=== PATIENT | female | born 1955 | race Caucasian/White ===

== ENCOUNTER 2018-12-01 07:17 | Observation (INO) ==
[2018-12-01] MEDS ORDERED: MAG HYDROX/ALUMINUM HYD/SIMETH 30 ML UDC PO ONE (07:55)
[2018-12-01] MEDS ORDERED: SUCRALFATE 1 G/10 ML UDC PO ONE (07:55)
[2018-12-01] MEDS ORDERED: LIDOCAINE HCL 20 ML UDC PO ONE (07:55)
[2018-12-01] MEDS ORDERED: diphenhydrAMINE HCL 50 MG/ML VIAL IV ONE (08:21)
[2018-12-01] MEDS ORDERED: NORMAL SALINE 1,000 ML IV ONE (08:21)
[2018-12-01] MEDS ORDERED: METOCLOPRAMIDE HCL 5 MG/ML VIAL IV ONE (08:21)
--- NOTE | 2018-12-01 08:25 | ERNOTE ---
Abdominal HPI - General Chief Complaint: Abdominal Pain Time Seen by Provider: 12/01/18 08:15 Source: patient Exam Limitations: no limitations - Immun/Allergies/Home Medications Immunizatons: IMMUNIZATION HX Immunizations Up to Date Yes History of Influenza Vaccine No Hx Pneumococcal Vaccination Yes Allergies/Adverse Reactions: Allergies codeine Allergy (Verified 10/02/18 21:05) Home Medications: HOME MEDICATIONS Albuterol Sulfate [Proair Hfa] 1 puff IH DAILY PRN 09/30/15 [Last Taken Unknown] Aspirin [Aspirin Chewable] 81 mg PO DAILY 09/30/15 [Last Taken Unknown] Budesonide/Formoterol Fumarate [Symbicort 160-4.5 Mcg Inhaler] 2 puff IH TID 09/30/15 [Last Taken Unknown] Buspirone HCl [Buspar] 20 mg PO BID 09/30/15 [Last Taken Unknown] QUEtiapine FUMARATE [Seroquel] 100 mg PO DAILY 09/30/15 [Last Taken Unknown] Dexlansoprazole [Dexilant] 60 mg PO DAILY 10/02/18 [Last Taken Unknown] Lurasidone HCl [Latuda] 20 mg PO DAILY 10/02/18 [Last Taken Unknown] Oxybutynin Chloride [Ditropan] 5 mg PO BID 10/02/18 [Last Taken Unknown] Omeprazole 20 mg PO DAILY 12/01/18 [Last Taken Unknown] - History of Present Illness Narrative: Patient presents with left flank and left upper quadrant pain that appears to radiate down into the lower abdomen. She states she has been throwing up 4 hours now and the pain appears to be unrelenting. She rates it as being believes moderate to severe and somewhat colicky in nature. Timing: constant, intermittent Quality: moderate, severe Activities at Onset: none Associated Symptoms: Present: nausea, vomiting Prior Abdominal Problems: Present: similar symptoms Prior Treatment: Present: recently seen Review of Systems - Review of Systems Constitutional: Present: See HPI EYE: Present: no symptoms reported ENT: Present: no symptoms reported Respiratory: Present: no symptoms reported Cardiology: Present: no symptoms reported Gastrointestinal/Abdominal: Present: See HPI Genitourinary: Present: no symptoms reported Musculoskeletal: Present: no symptoms reported Skin: Present: no symptoms reported Neurological: Present: no symptoms reported Endocrine: Present: no symptoms reported Hematologic/Lymphatic: Present: no symptoms reported Psych: Present: no symptoms reported Medical History (Last Reviewed 10/02/18 @ 22:55 by Zuly Alvarez RN) History of asthma Hx of bronchitis Hx of hyperlipidemia Hx of primary hypertension Surgical History: Surgical History (Last Updated 12/01/18 @ 07:27 by Jovany Hughes RN) History of esophagogastroduodenoscopy (EGD) 10/2018 History of bilateral knee arthroplasty History of carpal tunnel release of both wrists History of partial hysterectomy Hx of cataract extraction Hx of rotator cuff surgery Family History: Family History (Last Reviewed 10/02/18 @ 22:55 by Zuly Alvarez RN) Other No pertinent family history Social History: Preferred Language Kiswahili Do you have any anabaptism or No cultural preference? Smoking Status Current every day smoker Have you smoked in the past 12 Yes months Do you dip or chew tobacco No Abuse History No History of abuse Psych History Hx of Anxiety,Hx of Depression Alcohol Use sober Drug Use none No Social History Section defined Physical Exam - Physical Exam General Appearance: Present: wd/wn, alert, moderate distress, severe distress Head Exam: Present: normal inspection, no evidence of injury Eye Exam: Normal inspection: bilateral, PERRL: bilateral Ears, Nose, Throat: Present: normal ENT inspection, H, normal pharynx Neck: Present: normal inspection, nontender Respiratory: Present: no respiratory distress, normal breath sounds, no accessory muscle use, chest nontender, lungs clear Cardiovascular/Chest: Present: regular rate, rhythm, no murmur, normal peripheral pulses Gastrointestinal/Abdominal: Present: normal bowel sounds, nondistended, soft, no organomegaly, tenderness Rectal Exam: Present: deferred Back Exam: Present: normal range of motion, CVA tenderness (L) Extremity Exam: Present: normal inspection, non-tender, no edema, normal range of motion Neurological Exam: Present: alert, oriented, normal mood/affect Skin Exam: Present: normal color, warm/dry Lymphatic Exam: Present: no adenopathy Progress - Results and Orders Patient's Lab Results:: I have reviewed the patient's lab results. - Vital Signs Patient's Vital Signs:: I have reviewed the patient's vital signs. Vital Signs: Vital Signs 12/01/18 07:17 Temperature 36.0 C Pulse Rate 89 Respiratory Rate 18 Blood Pressure 162/85 H O2 Sat by Pulse Oximetry 95 - Progress/Reassessment Chief Complaint: Abdominal Pain Plan - Plan Plan: I suspect the patient has an infected kidney stone on the left. We did do 2 blood cultures she was given IV fluid and 1 g of Rocephin. I discussed the case with both the hospitalist and the on-call urologist and patient will be admitted and a stent will be placed sometime later this afternoon. Departure Clinical Impression: Pyelonephritis, Ureteral stone with hydronephrosis - Departure Disposition: Still a patient Condition: Fair Referrals: Farooq Quijano MD [Primary Care Provider] -
[2018-12-01 08:46] LABS: Hematocrit 47.3 % (37.0-47.0); Hemoglobin 16.3 gm/dL (12.5-16.0); Mean Cell Volume 95.9 fl (78-100); Mean Corpuscular Hemoglobin 33.1 pg (27-31); Mean Corpuscular Hgb Conc 34.5 g/dl (32-36); Mean Platelet Volume 9.9 fl (8-12.5); Neutrophil # 13.1 K/mm3 (1.3-6.0); Neutrophil % 80.1 % (42-75.0); Platelet Count 294 K/mm3 (150-450); Red Blood Count 4.93 M/mm3 (4.2-5.4); Red Cell Distribution Width 12.4 % (11.5-14.0); White Blood Count 16.3 K/mm3 (4.0-10.5)
[2018-12-01 08:47] LABS: Albumin * 3.6 gm/dl (3.4-5.0); BUN/Creatinine Ratio 14.6 (9.0-21.6); Bilirubin, Total 0.6 mg/dL (0.0-1.1); Ca. Corrected For Albumin 9.7 mg/dL (8.4-10.2); Calcium * 9.7 mg/dL (7.9-10.9); Carbon Dioxide 29.1 mmol/L (24-32.6); Magnesium 1.8 mg/dL (1.2-2.8); Potassium 4.1 mmol/L (3.4-4.6); Total Protein 7.7 gm/dL (6.2-8.2)
[2018-12-01 09:26] LABS: Urine Bilirubin Negative (NEGATIVE); Urine Blood 50 /ul (NEGATIVE); Urine Ketone Negative (NEGATIVE); Urine Protein 15 mg/dL (NEGATIVE); Urine Specific Gravity 1.025 SP.GR. (1.005-1.010); Urine Urobilinogen Normal (NORMAL)
[2018-12-01 09:32] LABS: Urine Color Dark Yellow; Urine Nitrite Positive (NEGATIVE)
[2018-12-01 09:33] LABS: Urine Appearance Slightly Cloudy (CLEAR); Urine Bacteria 2+
[2018-12-01] MEDS ORDERED: cefTRIAXone SODIUM 1,000 MG/100 ML BAG IV ONE (11:52)
[2018-12-01] MEDS ORDERED: HYDROmorphone HCL 1 MG/ML DISP.SYRIN IV ONE (13:04)
[2018-12-01] MEDS ORDERED: ONDANSETRON HCL/PF 2 MG/ML VIAL IV PRN (13:20)
[2018-12-01] MEDS ORDERED: HYDROmorphone HCL 1 MG/ML DISP.SYRIN IV PRN (13:28)
[2018-12-01] MEDS: NORMAL SALINE 1,000 ML IV ONE ×2 (13:32→13:47)
[2018-12-01] MEDS ORDERED: ALBUTEROL SULFATE 2.5 MG/0.5 ML VIAL.NEB IH PRN (13:34)
--- NOTE | 2018-12-01 13:49 | HP ---
Chief Complaint - Chief Complaint Date of Service: 12/01/18 Time of Service: 13:37 Chief Complaint: I have left flank pain, nausea vomiting since yesterday. History of Present Illness: 63-year-old female with past medical history of morbid obesity, hypertension, acid reflux disease, depression, anxiety disorder, bronchial asthma, was brought to ER due to left lower quadrant pain accompanied by nausea and multiple episodes of nonbloody vomiting that started last night in her home. Patient reports her symptoms started with lower back and left flank discomfort that started yesterday afternoon and worsen in the evening when she started having edie left lower quadrant pain with nausea and vomiting. She reports not being able to get a comfortable position ever since her pain started. She denies renal issues or chronic kidney disease or any kidney stones in her past. Patient has never seen a maitre d and only takes medication for bladder incontinence and overactive bladder. Medical History (Last Reviewed 10/02/18 @ 22:55 by Zuly Alvarez RN) History of asthma Hx of bronchitis Hx of hyperlipidemia Hx of primary hypertension Surgical History: Surgical History (Last Updated 12/01/18 @ 07:27 by Jovany Hughes RN) History of esophagogastroduodenoscopy (EGD) 10/2018 History of bilateral knee arthroplasty History of carpal tunnel release of both wrists History of partial hysterectomy Hx of cataract extraction Hx of rotator cuff surgery Family History: Family History (Last Reviewed 10/02/18 @ 22:55 by Zuly Alvarez RN) Other No pertinent family history Social History: Preferred Language North [place] Do you have any pentecostal or No cultural preference? Smoking Status Current every day smoker Have you smoked in the past 12 Yes months Do you dip or chew tobacco No Abuse History No History of abuse Psych History Hx of Anxiety,Hx of Depression Alcohol Use sober Drug Use none No Social History Section defined Peds Patient Hx - Developmental: No Pertinent Hx Peds Patient Hx - Medical: No Pertinent Hx Peds Patient Hx - Cardiac/Respiratory: No Pertinent Hx Peds Patient Hx - Surgical: No Surgical History Patient History - Cancer: No Hx of Cancer Review Of Systems (GEN) - Review of Systems Generalized/Overall Review: Present: Chills. Absent: Fever EENTM: Present: No Symptoms Reported Respiratory: Present: No Symptoms Reported Cardiac: Present: No Symptoms Reported Abdominal: Present: Nausea, Vomiting, Abdominal Pain Genitourinary: Present: Incontinent Musculoskeletal: Present: No Symptoms Reported Neurological: Present: No Symptoms Reported Skin: Present: No Symptoms Reported Endocrine: Present: No Symptoms Reported Misc: All systems neg except as marked Immunizations: IMMUNIZATION HX Immunizations Up to Date Yes History of Influenza Vaccine No Hx Pneumococcal Vaccination Yes Allergies/Adverse Reactions: Allergies Allergy/AdvReac Type Severity Reaction Status Date / Time codeine Allergy Verified 10/02/18 21:05 Home Medications: HOME MEDICATIONS Albuterol Sulfate [Proair Hfa] 1 puff IH DAILY PRN 09/30/15 [Last Taken Unknown] Aspirin [Aspirin Chewable] 81 mg PO DAILY 09/30/15 [Last Taken Unknown] Budesonide/Formoterol Fumarate [Symbicort 160-4.5 Mcg Inhaler] 2 puff IH TID 09/30/15 [Last Taken Unknown] Buspirone HCl [Buspar] 20 mg PO BID 09/30/15 [Last Taken Unknown] QUEtiapine FUMARATE [Seroquel] 100 mg PO DAILY 09/30/15 [Last Taken Unknown] Dexlansoprazole [Dexilant] 60 mg PO DAILY 10/02/18 [Last Taken Unknown] Lurasidone HCl [Latuda] 20 mg PO DAILY 10/02/18 [Last Taken Unknown] Oxybutynin Chloride [Ditropan] 5 mg PO BID 10/02/18 [Last Taken Unknown] Omeprazole 20 mg PO DAILY 12/01/18 [Last Taken Unknown] Exam - Exam Vital Signs: Vital Signs - Last Taken Temp 36.0 C 12/01/18 07:17 Pulse 89 12/01/18 07:17 Resp 18 12/01/18 07:17 BP 162/85 H 12/01/18 07:17 Pulse Ox 95 12/01/18 07:17 Constitutional: Present: Alert, Oriented x3, Cooperative, Well developed, Well nourished, Mild distress, Elderly, Morbidly obese ENT Exam: Present: normal ENT inspection, hearing grossly normal, pharynx normal, TMs normal Eye Exam: bilateral eye: normal inspection, PERRL, EOMI Neck: Present: non-tender, full range of motion, supple, normal inspection, trachea midline, limited range of motion Back Exam: Present: CVA tenderness (L) Breasts: Present: Exam deferred Respiratory: Present: chest non-tender Cardiovascular/Chest: Present: normal peripheral pulses, regular rate, rhythm, no chest tenderness, no edema, no gallop, no JVD, no murmur Peripheral Pulses: carotid (R): 3+, carotid (L): 3+, femoral (R): 3+, femoral (L): 3+, dorsalis-pedis (R): 3+, dorsalis-pedis (L): 3+, radial (R): 3+, radial (L): 3+ Abdomen: Present: Normal bowel sounds, soft, nontender, nondistended, no rebound tenderness, no hepatospenomegaly, no masses, obese /Rectal: Present: Exam deferred Extremity: Present: normal range of motion, non-tender, normal inspection, no pedal edema, no calf tenderness, normal capillary refill, pelvis stable Skin Exam: Present: normal color, warm/dry, no cyanosis Lymphatic: Present: no adenopathy Neurologic: Present: 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, normal cerebellar test, no motor/sensory deficits, alert, normal mood/affect, oriented x 3 Appearance: Present: appropriate appearance, appropriate insight Eye contact: Present: cooperative, good eye contact, normal speech Thoughts: Present: normal thought pattern, no apparent hallucination Diagnostic Studies: Abnormal Lab Results 12/01/18 12/01/18 12/01/18 Range/Units 08:25 08:25 09:20 WBC 16.3 H (4.0-10.5) K/mm3 Hgb 16.3 H (12.5-16.0) gm/dL Hct 47.3 H (37.0-47.0) % MCH 33.1 H (27-31) pg Immature Gran # (Auto) 0.06 H (0.000-0.0310) K/mm3 Neutrophils % 80.1 H (42-75.0) % Lymphocytes % 15.7 L (20-51) % Neutrophils # 13.1 H (1.3-6.0) K/mm3 Anion Gap 14.0 H (6.8-13.8) mmol/L Random Glucose 123 H (70-110) mg/dL ALT 14 L (19-67) U/L Urine Protein 15 H (NEGATIVE) mg/dL Urine Blood 50 H (NEGATIVE) /ul Urine Nitrate Positive H (NEGATIVE) Ur Leukocyte Esterase 100 H (NEGATIVE) /ul Urine RBC 5-10 H (0-5) /hpf Urine WBC 10-25 H (0-5) /hpf Urine Bacteria 2+ H (NONE) Laboratory Results WBC 16.3 K/mm3 (4.0-10.5) H 12/01/18 08:25 RBC 4.93 M/mm3 (4.2-5.4) 12/01/18 08:25 Hgb 16.3 gm/dL (12.5-16.0) H 12/01/18 08:25 Hct 47.3 % (37.0-47.0) H 12/01/18 08:25 MCV 95.9 fl (78-100) 12/01/18 08:25 MCH 33.1 pg (27-31) H 12/01/18 08:25 MCHC 34.5 g/dl (32-36) 12/01/18 08:25 RDW 12.4 % (11.5-14.0) 12/01/18 08:25 Plt Count 294 K/mm3 (150-450) 12/01/18 08:25 MPV 9.9 fl (8-12.5) 12/01/18 08:25 Immature Gran % (Auto) 0.40 % (0.001-0.429) 12/01/18 08:25 Immature Gran # (Auto) 0.06 K/mm3 (0.000-0.0310) H 12/01/18 08:25 Neutrophils % 80.1 % (42-75.0) H 12/01/18 08:25 Lymphocytes % 15.7 % (20-51) L 12/01/18 08:25 Monocytes % 3.3 % (0.0-9) 12/01/18 08:25 Eosinophils % 0.1 % (0.0-3.0) 12/01/18 08:25 Basophils % 0.4 % (0.0-1.0) 12/01/18 08:25 Nucleated RBC % 0.0 k/mm3 (0-1) 12/01/18 08:25 Neutrophils # 13.1 K/mm3 (1.3-6.0) H 12/01/18 08:25 Lymphocytes # 2.56 k/mm3 (1.5-3.5) 12/01/18 08:25 Monocytes # 0.5 k/mm3 (0.0-1.0) 12/01/18 08:25 Eosinophils # 0.0 k/mm3 (0.0-0.7) 12/01/18 08:25 Absolute Basophils 0.1 k/mm3 (0.0-0.1) 12/01/18 08:25 Sodium 141 mmol/L (132-142) 12/01/18 08:25 Plasma Sodium 141 mmol/L (130-142) 12/01/18 08:25 Potassium 4.1 mmol/L (3.4-4.6) D 12/01/18 08:25 Chloride 102 mmol/L (97-106) 12/01/18 08:25 Carbon Dioxide 29.1 mmol/L (24-32.6) 12/01/18 08:25 Anion Gap 14.0 mmol/L (6.8-13.8) H 12/01/18 08:25 BUN 13 mg/dL (3-23) 12/01/18 08:25 Creatinine 0.89 mg/dL (0.4-1.4) 12/01/18 08:25 Est GFR (Non-Af Amer) 68 mL/min (60-130) 12/01/18 08:25 BUN/Creatinine Ratio 14.6 (9.0-21.6) 12/01/18 08:25 Random Glucose 123 mg/dL (70-110) H 12/01/18 08:25 Calcium 9.7 mg/dL (7.9-10.9) 12/01/18 08:25 Calcium Adj for Albumin 9.7 mg/dL (8.4-10.2) 12/01/18 08:25 Magnesium 1.8 mg/dL (1.2-2.8) 12/01/18 08:25 Total Bilirubin 0.6 mg/dL (0.0-1.1) 12/01/18 08:25 AST 15 U/L (0-48) 12/01/18 08:25 ALT 14 U/L (19-67) L 12/01/18 08:25 Alkaline Phosphatase 119 U/L (50-170) 12/01/18 08:25 Total Protein 7.7 gm/dL (6.2-8.2) 12/01/18 08:25 Albumin 3.6 gm/dl (3.4-5.0) 12/01/18 08:25 Lipase 111 U/L (73-393) 12/01/18 08:25 Urine Color Dark yellow 12/01/18 09:20 Urine Appearance Slightly cloudy (CLEAR) 12/01/18 09:20 Urine pH 6.0 pH (5.0-7.0) 12/01/18 09:20 Ur Specific [place] 1.025 SP.GR. (1.005-1.010) 12/01/18 09:20 Urine Protein 15 mg/dL (NEGATIVE) H 12/01/18 09:20 Urine Glucose (UA) Negative mg/dL (NEGATIVE) 12/01/18 09:20 Urine Ketones Negative mg/dL (NEGATIVE) 12/01/18 09:20 Urine Blood 50 /ul (NEGATIVE) H 12/01/18 09:20 Urine Nitrate Positive (NEGATIVE) H 12/01/18 09:20 Urine Bilirubin Negative mg/dl (NEGATIVE) 12/01/18 09:20 Prot Sulfosalicylic Acd Negative mg/dL (0) 12/01/18 09:20 Urine Urobilinogen Normal EU/dl (NORMAL) 12/01/18 09:20 Ur Leukocyte Esterase 100 /ul (NEGATIVE) H 12/01/18 09:20 Urine RBC 5-10 /hpf (0-5) H 12/01/18 09:20 Urine WBC 10-25 /hpf (0-5) H 12/01/18 09:20 Ur Epithelial Cells 0-5 /hpf (0-5) 12/01/18 09:20 Urine Bacteria 2+ (NONE) H 12/01/18 09:20 Urine Culture Comments Culture to follow 12/01/18 09:20 Assessment/Plan - Narrative Narrative: Patient was evaluated and medical chart was reviewed, decision to admit to outpatient observation for acute pyelonephritis secondary to infected nephrolithiasis was taken. Patient was also found to be moderately dehydrated likely secondary to her multiple episodes of nonbloody vomiting. Therefore we will treat patient with IV hydration, analgesics for pain control, and IV antibiotics. Blood culture and urine cultures were taken and sent to lab. We will also consult a urologist for possible stent placement for left-sided ureteral obstruction. We will follow-up with further recommendations from the specialists. - Assessment/Plan (1) Pyelonephritis Problem: Acute (2) Ureteral stone with hydronephrosis Problem: Acute (3) Moderate dehydration Problem: Acute (4) Nausea & vomiting Problem: Acute (5) Nausea & vomiting Problem: Acute
[2018-12-01] MEDS: FAMOTIDINE 20 MG in DEXTROSE 5 % IN WATER 100 ML IV SCH ×2 (14:37)
--- NOTE | 2018-12-01 14:48 | ANES ---
Anesthesia Pre Procedure Eval Vitals/Labs: Last Vital Signs Temp 37.1 C 12/01/18 13:54 Pulse 78 12/01/18 13:54 Resp 20 12/01/18 13:54 BP 132/70 12/01/18 13:54 Pulse Ox 94 12/01/18 13:54 HOME MEDICATIONS Albuterol Sulfate [Proair Hfa] 1 puff IH DAILY PRN 09/30/15 [Last Taken Unknown] Aspirin [Aspirin Chewable] 81 mg PO DAILY 09/30/15 [Last Taken Unknown] Budesonide/Formoterol Fumarate [Symbicort 160-4.5 Mcg Inhaler] 2 puff IH TID 09/30/15 [Last Taken Unknown] Lurasidone HCl [Latuda] 20 mg PO DAILY 10/02/18 [Last Taken Unknown] Oxybutynin Chloride [Ditropan] 5 mg PO BID 10/02/18 [Last Taken Unknown] Gabapentin [Neurontin] 600 mg PO TID 12/01/18 [Last Taken Unknown] Omeprazole [Prilosec] 20 mg PO DAILY 12/01/18 [Last Taken Unknown] Simvastatin [Zocor] 40 mg PO DAILY 12/01/18 [Last Taken Unknown] Venlafaxine HCl [Effexor] 150 mg PO DAILY 12/01/18 [Last Taken Unknown] valACYclovir HCL [Valtrex] 1,000 mg PO TID 12/01/18 [Last Taken Unknown] Allergies/Adverse Reactions: Allergies Allergy/AdvReac Type Severity Reaction Status Date / Time codeine Allergy Mild Itching Verified 12/01/18 14:22 - Planned Procedure Planned Procedure: cysto with stent placement Medication List Reviewed:: Yes Allergies Verified: Yes Medical History (Last Reviewed 12/01/18 @ 14:44 by Jurgen Sanchez CRNA) History of asthma Hx of bronchitis Hx of hyperlipidemia Hx of primary hypertension Surgical History (Last Reviewed 12/01/18 @ 14:44 by Jurgen Sanchez CRNA) History of esophagogastroduodenoscopy (EGD) 10/2018 History of bilateral knee arthroplasty History of carpal tunnel release of both wrists History of partial hysterectomy Hx of cataract extraction Hx of rotator cuff surgery Family History (Last Reviewed 12/01/18 @ 14:44 by Jurgen Sanchez CRNA) Father Heart disease Grandmother Heart disease Other No pertinent family history - Family Anesthesia History Family History:: no untoward family reactions to anesthesia, no familial bleeding tendencies, no family history of clotting disorders, no family history of premature - Airway/Neck/Teeth Teeth Condition: none Denture Type: Full upper, Full lower Neck Exam: full range of motion Mallampatti Score: 3 Thyromental (T-M) distance: > 6 cm Mandibulo Hyoid distance: > 3 cm - Respiratory Respiratory History: asthma, bronchitis Respiratory Physical: decreased breath sounds, rhonchi Smoking Status: Current every day smoker Discussed smoking cessation including day of surgery: Yes - last ciggarrette yesterday Sleep Apnea currently treated: No Sleep Apnea by current assessment: Yes - O2 drops at night, anatomy indicates DENICE Discussed Risks/Treatment of DENICE: Yes - Cardiovascular Cardiac History: angina - relates "stress related" takes no medication for this, hypertension, hyperlipidemia Tolerate Activity: Poor Heart Sounds: S1 & S2, Regular - Anesthesia Assessment and Plan ASA Class: PS, III Anesthesia Type Plan: General LMA Planned difficult intubation/equipment available: Yes - standby
--- NOTE | 2018-12-01 15:10 | CONS ---
[facility] - General Date of Service: 12/01/18 Source: patient - History of Present Illness Initial Comments: 63 yo female who I am consulted on for suspected UTI and left ureteral stone. She presented to the ER today with severe left flank pain. A stone protocol CT scan was done, which I reviewed the report and images, showing a 6 mm left proximal ureteral stone with moderate hydro. She was vomiting and has had diarrhea as well. No other pathology seen on the CT. Her urine today shows sign of infection with bacteria and white cells seen. Denies any signs of infection such as dysuria or fever. Her WBC was elevated at 16. She did have Ecoli in the urine in 09/23 also without signs of UTI at that time. This is her first known stone. She is a heavy pop and tea drinker. Her family hx is positive for son with kidney stones. She is on home O2 at night. On baby ASA but no other blood thinners. Timing/Duration: 24 hours Severity: severe Allergies/Adverse Reactions: Allergies codeine Allergy (Mild, Verified 12/01/18 14:22) Itching Home Medications: Home Medications Medication Instructions Recorded Last Taken Albuterol Sulfate [Proair Hfa] 1 puff IH DAILY PRN 09/30/15 Unknown Aspirin [Aspirin Chewable] 81 mg PO DAILY 09/30/15 Unknown Budesonide/Formoterol Fumarate 2 puff IH TID 09/30/15 Unknown [Symbicort 160-4.5 Mcg Inhaler] Lurasidone HCl [Latuda] 20 mg PO DAILY 10/02/18 Unknown Oxybutynin Chloride [Ditropan] 5 mg PO BID 10/02/18 Unknown Gabapentin [Neurontin] 600 mg PO TID 12/01/18 Unknown Omeprazole [Prilosec] 20 mg PO DAILY 12/01/18 Unknown Simvastatin [Zocor] 40 mg PO DAILY 12/01/18 Unknown Venlafaxine HCl [Effexor] 150 mg PO DAILY 12/01/18 Unknown valACYclovir HCL [Valtrex] 1,000 mg PO TID 12/01/18 Unknown Medications - Medications Current Medications: Current Medications Sodium Chloride (Sodium Chloride 0.9%) 1,000 mls @ 125 mls/hr IV .Q8H ONE Stop: 12/01/18 21:03 Last Admin: 12/01/18 13:32 Dose: 125 mls/hr Documented by: Famotidine 20 mg/ Dextrose/ (Water) 102 mls @ 400 mls/hr IV Q12H MORTEZA Stop: 12/31/18 13:31 Last Admin: 12/01/18 14:37 Dose: 400 mls/hr Documented by: Review of Systems - Review of Systems Generalized/Overall Review: Present: No Symptoms Reported EENTM: Present: No Symptoms Reported Respiratory: Present: Shortness of Breath Cardiac: Present: No Symptoms Reported Abdominal: Present: Vomiting Genitourinary: Present: No Symptoms Reported Musculoskeletal: Present: Back Pain Neurological: Present: No Symptoms Reported Skin: Present: No Symptoms Reported Endocrine: Present: No Symptoms Reported Physical Examination - Exam Vital Signs: Vital Signs - Last Taken Temp 98.8 F 12/01/18 13:54 Pulse 78 12/01/18 13:54 Resp 20 12/01/18 13:54 BP 132/70 12/01/18 13:54 Pulse Ox 94 12/01/18 13:54 O2 Oxygen Delivery Method Nasal Cannula Constitutional: Present: Alert, Oriented x3 ENT Exam: Present: normal ENT inspection, hearing grossly normal Neck: Present: full range of motion Respiratory: Present: lungs clear Cardiovascular/Chest: Present: normal peripheral pulses Abdomen: Present: soft, nontender, nondistended, no rebound tenderness /Rectal: Present: External genitalia normal Extremity: Present: normal range of motion Skin Exam: Present: normal color, warm/dry Appearance: Present: disheveled - Results and Findings: Narrative: 6 mm left ureteral stone with signs of UTI and urinalysis. Recommend taking to the OR today for cystoscopy with left retrograde pyelogram and ureteral stent placement. Explained can't treat stone because of UTI. Will need follow up ureteroscopy with laser litho and possible stent reinsertion on Saturday assuming doing well. Will plan to keep tonight and discharge tomorrow if doing well. Will need pain meds and oxybutynin as well as antibiotic like cipro on discharge. Lab/Microbiology results last 24 hrs: Abnormal/Pending Laboratory Last 24 HRS 12/01/18 12/01/18 12/01/18 09:20 08:25 08:25 WBC 16.3 H Hgb 16.3 H Hct 47.3 H MCH 33.1 H Immature Gran # (Auto) 0.06 H Neutrophils % 80.1 H Lymphocytes % 15.7 L Neutrophils # 13.1 H Anion Gap 14.0 H Random Glucose 123 H ALT 14 L Urine Protein 15 H Urine Blood 50 H Urine Nitrate Positive H Ur Leukocyte Esterase 100 H Urine RBC 5-10 H Urine WBC 10-25 H Urine Bacteria 2+ H - Assessments/Findings (1) Urinary tract infection Problem: Acute Qualifiers: Urinary tract infection type: acute pyelonephritis Qualified Code(s): N10 - Acute pyelonephritis (2) Ureteral stone with hydronephrosis Problem: Acute
--- NOTE | 2018-12-01 17:21 | OR ---
Operative Report - Dictated Report Narrative: Procedure: cystoscopy, left retrograde pyelogram, left ureteral stent insertion Preop Dx: UTI, left ureteral stone Postop: same Anesthesia: Gen Blood loss: none Findings: left ureteral stone, obviously infected left kidney Specimen: urine culture from bladder wash Description of the procedure: Patient properly identified and consented. Brought to the OR and Gen anesthesia induced. Prepped and draped in dorsal lithotomy position. Timeout performed. Rigid cystoscope passed into the bladder. Bladder drained, some debris noted and signs of cystitis. No lesions or stones. Single ureters bilaterally. Left retrograde pyelogram performed and interpreted by Dr. Zamorano. Pollack catheter used to cannulate left UO and Isovue contrast injected for a total of 7 mL. This showed an obvious filling defect in the left mid-ureter with dilation above this consistent with a stone. A solo wire was passed around the stone. After this was done there was brisk excretion of purulent material from the UO and a culture obtained. I then advanced a 6x24 Double J stent over the wire. Wire removed. Fluoro confirmed a coil in the left renal pelvis and I visualized a coil in the bladder. More purulent material drained out of the stent. Bladder drained. Patient returned to recovery in good condition.
[2018-12-01] MEDS ORDERED: HYDROcodone/ACETAMINOPHEN 1 EACH TABLET PO PRN (17:33)
--- NOTE | 2018-12-01 17:33 | ANES ---
Post Anesthesia Discharge - Transfer of Care Transfer of Care handoff given to nurse: Yes - Discharge from PACU Discharge from PACU when meets criteria: Yes - Awake in PACU.
--- NOTE | 2018-12-01 17:46 | ANES ---
Post Anesthesia Assessment - Vital Signs Vitals: Last Vital Signs Temp 38.7 C H 12/01/18 17:40 Pulse 104 H 12/01/18 17:40 Resp 22 H 12/01/18 17:40 BP 133/66 12/01/18 17:40 Pulse Ox 93 12/01/18 17:40 Airway Patency: Normal - Mental Status Level Of Consciousness: Awake, Alert, Appropriate - Pain Level Pain Score: 0 - N/V Assessment Nausea/Vomiting Presence: None Dehydration:: No - Additional Notes Comments:: Comfortable, no longer shivering. SaO2 90s on room air.
[2018-12-01] MEDS: ACETAMINOPHEN 500 MG TABLET PO PRN (19:23)
[2018-12-01] MEDS: FLUTICASONE PROPION/SALMETEROL 14 PUFF DISK.W.DEV IH SCH (21:19)
[2018-12-01] MEDS: OXYBUTYNIN CHLORIDE 5 MG TABLET PO SCH (21:20)
[2018-12-01] MEDS: busPIRone HCL 5 MG TABLET PO SCH (21:20)
[2018-12-01] MEDS ORDERED: NORMAL SALINE 1,000 ML IV PRN (21:59)
[2018-12-02] MEDS: FAMOTIDINE 20 MG in DEXTROSE 5 % IN WATER 100 ML IV SCH ×2 (01:07)
[2018-12-02 05:43] LABS: Hematocrit 43.1 % (37.0-47.0); Hemoglobin 14.4 gm/dL (12.5-16.0); Mean Cell Volume 100.7 fl (78-100); Mean Corpuscular Hemoglobin 33.6 pg (27-31); Mean Corpuscular Hgb Conc 33.4 g/dl (32-36); Mean Platelet Volume 10.4 fl (8-12.5); Neutrophil # 16.2 K/mm3 (1.3-6.0); Neutrophil % 90.1 % (42-75.0); Platelet Count 220 K/mm3 (150-450); Red Blood Count 4.28 M/mm3 (4.2-5.4); Red Cell Distribution Width 12.9 % (11.5-14.0); White Blood Count 17.9 K/mm3 (4.0-10.5)
[2018-12-02 05:57] LABS: Albumin * 3.1 gm/dl (3.4-5.0); Anion Gap 12.8 mmol/L (6.8-13.8); BUN/Creatinine Ratio 14.4 (9.0-21.6); Bilirubin, Total 0.5 mg/dL (0.0-1.1); Ca. Corrected For Albumin 9.2 mg/dL (8.4-10.2); Calcium * 8.8 mg/dL (7.9-10.9); Carbon Dioxide 27.3 mmol/L (24-32.6); Potassium 4.1 mmol/L (3.4-4.6)
[2018-12-02] MEDS: FLUTICASONE PROPION/SALMETEROL 14 PUFF DISK.W.DEV IH SCH (08:27)
[2018-12-02] MEDS: OXYBUTYNIN CHLORIDE 5 MG TABLET PO SCH (08:27)
[2018-12-02] MEDS: busPIRone HCL 5 MG TABLET PO SCH (08:32)
[2018-12-02] MEDS: ACETAMINOPHEN 500 MG TABLET PO PRN (08:39)
[2018-12-02] MEDS ORDERED: LURASIDONE HCL 80 MG TABLET PO SCH (09:00)
[2018-12-02] MEDS ORDERED: ASPIRIN 81 MG TAB.CHEW PO SCH (09:00)
[2018-12-02] MEDS ORDERED: QUEtiapine FUMARATE 100 MG TABLET PO SCH (09:00)
[2018-12-02] MEDS ORDERED: DOCUSATE SODIUM 100 MG CAPSULE PO SCH (09:00)
--- NOTE | 2018-12-02 11:27 | DS ---
(1) Pyelonephritis Problem: Acute (2) Ureteral stone with hydronephrosis Problem: Acute (3) Moderate dehydration Problem: Resolved (4) Nausea & vomiting Problem: Resolved Description of Stay: 63-year-old female admitted for left-sided pyelonephritis with hydronephrosis, due to left-sided nephrolithiasis, and moderate dehydration was evaluated at bedside and was found to be afebrile and in no acute distress. Patient underwent a successful double-J stent placement and drainage of purulent material in the OR by the urologist. Cultures were taken and sent to lab, susceptibility report is pending and will be followed by the urologist for proper antibiotic coverage. No adverse events were reported and patient is recovering without any issues. This morning's labs demonstrate a mild worsening of her leukocytosis which is expected after such an invasive procedure. Patient reports feeling better, complete resolution of her pain as well as resolution of her nausea and vomiting. She is cleared for discharge by the urologist with instructions to follow-up with her PCP for coordination to see a urologist in the [facility] where she is covered by Medicaid for follow-up uroscopy with lithotripsy to treat her nephrolithiasis. Patient also requested at home nursing care and since she is homebound due to limited mobility, dependence on oxygen due to COPD, and complication from her type 2 of diabetes [id number] encounter was performed for the need of at home nursing care for monitoring of her medications, blood sugar, and vital signs monitoring due to cystoscoopy and UTI. The need for home health care skilled services is directly related to the time spent [id number] with the person. Procedures Performed: see notes below List Procedures: Patient underwent a ureteroscope with double-J placement and drainage of purulent material due to obstruction of the left ureter. Results and Findings: Pending Mircobiology Results 12/01/18 17:08 Urine,Catheterized Urine Culture - Preliminary Gram Negative Bacilli 12/01/18 09:25 Urine,Clean Catch Urine Culture - Preliminary Gram Negative Bacilli Lab Pending Results 12/01/18 08:25: WBC 16.3 H, RBC 4.93, Hgb 16.3 H, Hct 47.3 H, MCV 95.9, MCH 33.1 H, MCHC 34.5, RDW 12.4, Plt Count 294, MPV 9.9, Immature Gran % (Auto) 0.40, Immature Gran # (Auto) 0.06 H, Neutrophils % 80.1 H, Lymphocytes % 15.7 L, Monocytes % 3.3, Eosinophils % 0.1, Basophils % 0.4, Nucleated RBC % 0.0, Neutrophils # 13.1 H, Lymphocytes # 2.56, Monocytes # 0.5, Eosinophils # 0.0, Absolute Basophils 0.1 12/01/18 08:25: Sodium 141, Plasma Sodium 141, Potassium 4.1 D, Chloride 102, Carbon Dioxide 29.1, Anion Gap 14.0 H, BUN 13, Creatinine 0.89, Est GFR (Non-Af Amer) 68, BUN/Creatinine Ratio 14.6, Random Glucose 123 H, Calcium 9.7, Calcium Adj for Albumin 9.7, Magnesium 1.8, Total Bilirubin 0.6, AST 15, ALT 14 L, Alkaline Phosphatase 119, Total Protein 7.7, Albumin 3.6, Lipase 111 12/01/18 09:20: Urine Color Dark yellow, Urine Appearance Slightly cloudy, Urine pH 6.0, Ur Specific [place] [employer] 1.025, Urine Protein 15 H, Urine Glucose (UA) Negative, Urine Ketones Negative, Urine Blood 50 H, Urine Nitrate Positive H, Urine Bilirubin Negative, Prot Sulfosalicylic Acd Negative, Urine Urobilinogen Normal, Ur Leukocyte Esterase 100 H, Urine RBC 5-10 H, Urine WBC 10-25 H, Ur Epithelial Cells 0-5, Urine Bacteria 2+ H, Urine Culture Comments Culture to follow 12/02/18 05:40: WBC 17.9 H, RBC 4.28, Hgb 14.4, Hct 43.1, MCV 100.7 H, MCH 33.6 H, MCHC 33.4, RDW 12.9, Plt Count 220, MPV 10.4, Immature Gran % (Auto) 0.60 H, Immature Gran # (Auto) 0.11 H, Neutrophils % 90.1 H, Lymphocytes % 6.6 L, Monocytes % 2.5, Eosinophils % 0.1, Basophils % 0.1, Nucleated RBC % 0.0, Jorge trophils # 16.2 H, Lymphocytes # 1.18 L, Monocytes # 0.4, Eosinophils # 0.0, Absolute Basophils 0.0 12/02/18 05:40: Sodium 140, Plasma Sodium 141, Potassium 4.1, Chloride 104, Carbon Dioxide 27.3, Anion Gap 12.8, BUN 20 D, Creatinine 1.39 D, Est GFR (Non-Af Amer) 41 L D, BUN/Creatinine Ratio 14.4, Random Glucose 177 H D, Calcium 8.8, Calcium Adj for Albumin 9.2, Total Bilirubin 0.5, AST 13, ALT 12 L, Alkaline Phosphatase 95, Total Protein 7.0, Albumin 3.1 L Discharge Location: Home Disposition: [facility] Condition: Fair Face to Face Encounter completed per [facility] Guidelines: Yes Discharge Activity: Activity as tolerated Discharge Diet: Consistent carbs Referrals: Farooq Quijano MD [Primary Care Provider] - Additional Patient Instructions (free text): [facility] at discharge- nursing. Fax demographics, H&P, discharge summary, orders, and medications. Prescriptions (Any new or edited meds): Ciprofloxacin 500 mg PO Q12H 7 Days #14 ml HYDROcodone/ACETAMINOPHEN [[place] 5-325] 1 ea PO Q6H PRN 3 Days #12 tab PRN Reason: Moderate Pain (Pain Scale 4-6) Complete Home Medications List: Complete Home Medication List: Albuterol Sulfate [Proair Hfa] 1 puff IH DAILY PRN 09/30/15 Aspirin [Aspirin Chewable] 81 mg PO DAILY 09/30/15 Budesonide/Formoterol Fumarate [Symbicort 160-4.5 Mcg Inhaler] 2 puff IH TID 09/30/15 Lurasidone HCl [Latuda] 20 mg PO DAILY 10/02/18 Oxybutynin Chloride [Ditropan] 5 mg PO BID 10/02/18 Gabapentin [Neurontin] 600 mg PO TID 12/01/18 Omeprazole [Prilosec] 20 mg PO DAILY 12/01/18 Simvastatin [Zocor] 40 mg PO DAILY 12/01/18 Venlafaxine HCl [Effexor] 150 mg PO DAILY 12/01/18 valACYclovir HCL [Valtrex] 1,000 mg PO TID 12/01/18 Ciprofloxacin 500 mg PO Q12H 7 Days #14 ml 12/02/18 HYDROcodone/ACETAMINOPHEN [[place] 5-325] 1 ea PO Q6H PRN 3 Days #12 tab 12/02/18 QUEtiapine FUMARATE [Seroquel] 100 mg PO DAILY tab 12/02/18 busPIRone HCL [Buspar] 20 mg PO BID tab 12/02/18
[2018-12-02 13:00] VITALS: BP 136/68
== END 2018-12-02 13:05 | disposition home health service (06) ==
LOC: ER 07:17 → MS 07:17
PROVIDERS: ADMIT Family Medicine; ATTEND Family Medicine
CPT/HCPCS: 36415; 74176; 74420; 76000; 80053; 81001; 83690; 83735; 85025; 87040; 87077; 87086; 87186; C1769; C2617